=== PATIENT | male | born 2005 | race Caucasian/White ===

== ENCOUNTER 2023-12-28 16:17 | Outpatient (CLI) | payer OTHER, SELFPAY ==
--- NOTE | 2023-12-28 16:26 | XR_ITS ---
FINAL REPORT CLINICAL HISTORY: LT HIP PAIN/LT LEG INJURY COMPARISON: None FINDINGS: Two views of the left femur were obtained. There is no acute fracture or dislocation. The joint spaces are well preserved. There is no acute soft tissue abnormality. IMPRESSION: No acute abnormality identified. Reviewed, Interpreted and Dictated by Tay Goodwin III, MD Transcribed by Tori Carballo Authenticated and [facility]
== END 2023-12-28 23:59 ==
LOC: RAD 16:22
PROVIDERS: PCP Family Medicine; Visit Provider Nurse Practitioner
DX: M25.552 Pain in left hip (principal); S89.92XA Unspecified injury of left lower leg, initial encounter
CPT/HCPCS: 73552